=== PATIENT | male | born 1970 | race Hispanic/Latino ===

== ENCOUNTER 2017-07-29 09:35 | Inpatient (IN) | payer OTHER, SELFPAY ==
[~2017-07-29] VITALS: Ht 175.3 cm; Wt 101.3 kg
[2017-07-29] VITALS (16 sets, daily range): BP systolic 83–117; BP diastolic 44–83
[2017-07-29] MEDS ORDERED: ISOVUE-370 50ML VIAL IV ONE (09:38)
[2017-07-29] MEDS ORDERED: BIVALIRUDIN 250 MG/VIAL IV ONE (09:38)
[2017-07-29] MEDS ORDERED: NITROGLYCERIN 5 MG/ML 10 ML VIAL IV ONE (09:38)
[2017-07-29] MEDS ORDERED: ATROPINE SULFATE 0.1 MG/ML 10 ML SYG IVP ONE (09:38)
[2017-07-29] MEDS ORDERED: IOPAMIDOL-370 100 ML VIAL IV ONE ×2 (09:38→10:51)
[2017-07-29] MEDS ORDERED: DOPAMINE HCL 400 MG/D5%-WATER 0 ML IV ONE (09:38)
[2017-07-29] MEDS ORDERED: HEPARIN SODIUM 1000UNIT/ML 10ML VIAL ONE (09:38)
[2017-07-29 09:45] LABS: BASOPHILS % (AUTO) 0.6 % (0.0-5.0); EOSINOPHILS % (AUTO) 0.2 % (0.0-8.0); HEMATOCRIT 44.5 % (42-54); LYMPHOCYTES % (AUTO) 25.1 % (21.0-51.0); MEAN CORPUSCULAR HEMOGLOBIN 31.1 pg (27.0-33.0); MEAN CORPUSCULAR HGB CONC 34.2 g/dL (32.0-36.0); MEAN CORPUSCULAR VOLUME 90.8 fL (79-99); NEUTROPHILS % (AUTO) 67.1 % (40.0-77.0); NUCLEATED RED BLOOD CELLS 0.1 % (0.0-0.19); PLATELET COUNT (AUTO) 144 K/uL (130-400); RED CELL DISTRIBUTION WIDTH 13.9 % (11.0-15.5)
[2017-07-29] MEDS ORDERED: LIDOCAINE HCL 2% 20ML ONE (09:49)
[2017-07-29] MEDS ORDERED: PRASUGREL HCL 10 MG TABLET ONE (09:50)
[2017-07-29 09:54] LABS: CREATININE 1.2 mg/dL (0.5-1.5)
[2017-07-29] MEDS ORDERED: MIDAZOLAM HCL 1 MG/ML 2ML VIAL ONE (09:54)
[2017-07-29 09:56] LABS: INR 0.97 (0.85-1.15); PARTIAL THROMBOPLASTIN TIME 19.4 SEC (26.3-35.5); PROTHROMBIN TIME 10.2 SEC (9.6-11.6)
[2017-07-29 10:00] LABS: ALBUMIN 3.4 g/dL (3.5-5.0); BILIRUBIN,TOTAL 0.4 mg/dL (0.2-1.0); TOTAL PROTEIN, SERUM 7.1 g/dL (6.0-8.3)
[2017-07-29] MEDS ORDERED: MAG HYDROX/AL HYDROX/SIMETH ES 30 ML SUSP UDCUP PO PRN (10:00)
[2017-07-29] MEDS ORDERED: NITROGLYCERIN 0.4 MG SL TAB SL PRN (10:00)
[2017-07-29] MEDS ORDERED: ACETAMINOPHEN 325 MG TAB PO PRN ×2 (10:00)
[2017-07-29] MEDS ORDERED: ONDANSETRON HCL 4 MG/2 ML VIAL IV PRN (10:00)
[2017-07-29] MEDS ORDERED: MORPHINE SULFATE 2 MG/ML 1ML SYG IV PRN (10:00)
[2017-07-29] MEDS ORDERED: LACTULOSE 20 GM/30 ML UDCUP PO PRN (10:00)
[2017-07-29] MEDS ORDERED: GUAIFENESIN-DM 200/20 MG 10 ML PO PRN (10:00)
[2017-07-29] MEDS ORDERED: MORPHINE SULFATE 2 MG/ML 1ML SYG ONE ×2 (10:05→10:16)
[2017-07-29] MEDS: SODIUM CHLORIDE 0.9% 1000ML 1,000 ML IV SCH ×2 (11:17→23:47)
[2017-07-29] MEDS ORDERED: ONDANSETRON HCL 4 MG/2 ML VIAL IVP PRN (11:30)
[2017-07-29] MEDS ORDERED: ACETAMINOPHEN-CODEINE 300/30MG TAB PO PRN ×2 (11:30)
[2017-07-29] MEDS ORDERED: TEMAZEPAM 30 MG CAP PO PRN (11:30)
[2017-07-29] MEDS ORDERED: NITROGLYCERIN 50 MG/D5% WATER 1 BOT IV PRN (11:30)
[2017-07-29 11:58] LABS: CREATINE KINASE MB 4.4 ng/mL (0.5-3.6)
[2017-07-29 13:37] LABS: HEMOGLOBIN A1C 5.3 % (4.0-6.0)
[2017-07-29] MEDS ORDERED: PHARMACY COMMUNICATION MISC SCH (14:15)
[2017-07-29] MEDS: FAMOTIDINE/PF 20 MG/2 ML VIAL IV SCH ×2 (15:27→20:20)
[2017-07-29 16:10] LABS: CREATINE KINASE MB 564.7 ng/mL (0.5-3.6)
[2017-07-29 16:44] LABS: TROPONIN I 125.23 ng/mL (0.00-0.06)
[2017-07-29 19:08] LABS: AMPHET/METH SCREEN,URINE NEGATIVE (NEGATIVE); BARBITURATE SCREEN, URINE NEGATIVE (NEGATIVE); BENZODIAZEPINES SCREEN,URINE POSITIVE (NEGATIVE); CANNABINOID SCREEN,URINE NEGATIVE (NEGATIVE); COCAINE SCREEN,URINE NEGATIVE (NEGATIVE); OPIATE SCREEN,URINE POSITIVE (NEGATIVE); PHENCYCLIDINE SCREEN,URINE NEGATIVE (NEGATIVE)
[2017-07-29] MEDS: METOPROLOL TARTRATE 25 MG TAB PO SCH (20:20)
[2017-07-30] VITALS (21 sets, daily range): BP systolic 91–125; BP diastolic 58–89
[2017-07-30 04:22] LABS: HEMATOCRIT 42.3 % (42-54); MEAN CORPUSCULAR HEMOGLOBIN 30.8 pg (27.0-33.0); MEAN CORPUSCULAR VOLUME 90.7 fL (79-99); PLATELET COUNT (AUTO) 153 K/uL (130-400); RED BLOOD CELL COUNT(AUTO) 4.67 MIL/uL (4.50-6.20); RED CELL DISTRIBUTION WIDTH 14.2 % (11.0-15.5); WHITE BLOOD COUNT (AUTO) 11.5 K/uL (4.8-10.8)
[2017-07-30 04:56] LABS: CREATINE KINASE MB 218.2 ng/mL (0.5-3.6); CREATININE 1.1 mg/dL (0.5-1.5); POTASSIUM 4.2 mmol/L (3.5-5.1)
[2017-07-30 06:01] LABS: TROPONIN I 118.03 ng/mL (0.00-0.06)
[2017-07-30] MEDS: PANTOPRAZOLE SODIUM 40 MG TABLET.DR PO SCH (08:07)
[2017-07-30] MEDS: LOSARTAN 50 MG TABLET PO SCH (08:08)
[2017-07-30] MEDS: METOPROLOL TARTRATE 25 MG TAB PO SCH ×2 (08:08→20:04)
[2017-07-30] MEDS: ATORVASTATIN CALCIUM 40 MG TABLET PO SCH (08:08)
[2017-07-30] MEDS: FAMOTIDINE/PF 20 MG/2 ML VIAL IV SCH ×2 (08:08→20:03)
[2017-07-30] MEDS: PRASUGREL HCL 10 MG TABLET PO SCH (08:20)
[2017-07-30] MEDS: ASPIRIN 81MG TAB.CHEW PO SCH (09:00)
[2017-07-30] MEDS ORDERED: ASPIRIN 325MG EC TAB 325 MG TABLET.DR PO SCH (09:00)
[2017-07-30] MEDS ORDERED: ASPI-555 PO (13:19)
[2017-07-30] MEDS ORDERED: LOSA25TA21 PO (13:19)
[2017-07-31 04:00] VITALS: BP 98/60
[2017-07-31 07:00] VITALS: BP 100/67
[2017-07-31] MEDS: ATORVASTATIN CALCIUM 40 MG TABLET PO SCH (08:38)
[2017-07-31] MEDS: PANTOPRAZOLE SODIUM 40 MG TABLET.DR PO SCH (08:39)
[2017-07-31] MEDS: LOSARTAN 50 MG TABLET PO SCH (08:39)
[2017-07-31] MEDS: ASPIRIN 81MG TAB.CHEW PO SCH (08:39)
[2017-07-31] MEDS: FAMOTIDINE/PF 20 MG/2 ML VIAL IV SCH ×2 (08:39→21:50)
[2017-07-31] MEDS: METOPROLOL TARTRATE 25 MG TAB PO SCH (08:39)
[2017-07-31] MEDS: PRASUGREL HCL 10 MG TABLET PO SCH (08:39)
[2017-07-31] MEDS ORDERED: ATOR40TA69 PO (09:51)
[2017-07-31] MEDS ORDERED: PRAS10TA6 PO (09:51)
[2017-07-31] MEDS ORDERED: SPIR25TA PO (09:51)
[2017-07-31] MEDS ORDERED: CARV6.2579 PO (09:51)
[2017-07-31] MEDS: FUROSEMIDE 20 MG TABLET PO SCH (10:32)
[2017-07-31] MEDS: SPIRONOLACTONE 25 MG TAB PO SCH (10:32)
[2017-07-31 11:46] VITALS: BP 93/63
[2017-07-31 16:00] VITALS: BP 142/64
[2017-07-31 19:35] VITALS: BP 125/71
[2017-07-31] MEDS: CARVEDILOL 6.25 MG TABLET PO SCH (21:50)
[2017-07-31 23:43] VITALS: BP 101/59
[2017-08-01 03:36] VITALS: BP 107/64
[2017-08-01 03:57] LABS: CREATININE 1.5 mg/dL (0.5-1.5); POTASSIUM 3.9 mmol/L (3.5-5.1)
[2017-08-01 07:00] VITALS: BP 106/65
[2017-08-01] MEDS: SPIRONOLACTONE 25 MG TAB PO SCH (08:43)
[2017-08-01] MEDS: FUROSEMIDE 20 MG TABLET PO SCH (08:43)
[2017-08-01] MEDS: CARVEDILOL 6.25 MG TABLET PO SCH (08:43)
[2017-08-01] MEDS: ATORVASTATIN CALCIUM 40 MG TABLET PO SCH (08:43)
[2017-08-01] MEDS: PANTOPRAZOLE SODIUM 40 MG TABLET.DR PO SCH (08:43)
[2017-08-01] MEDS: ASPIRIN 81MG TAB.CHEW PO SCH (08:43)
[2017-08-01] MEDS: LOSARTAN 50 MG TABLET PO SCH (08:44)
[2017-08-01] MEDS: PRASUGREL HCL 10 MG TABLET PO SCH (08:44)
[2017-08-01] MEDS: FAMOTIDINE/PF 20 MG/2 ML VIAL IV SCH (08:44)
[2017-08-01] MEDS ORDERED: FURO20TA6 PO (10:47)
[2017-08-01 11:00] VITALS: BP 95/58
== END 2017-08-01 12:50 | disposition home or self-care (01) | DRG 246 ==
LOC: EDH 09:35 → EDHIP 09:36 → 2CH 11:48
PROVIDERS: ADMIT Family Medicine; ATTEND Family Medicine
PROC: 027035Z Dilation of Coronary Artery, One Artery with Two Drug-eluting Intraluminal Devices, Percutaneous Approach (ICD-10-PCS; principal; 2017-07-29)
PROC: 4A023N7 Measurement of Cardiac Sampling and Pressure, Left Heart, Percutaneous Approach (ICD-10-PCS; 2017-07-29)
PROC: B2111ZZ Fluoroscopy of Multiple Coronary Arteries using Low Osmolar Contrast (ICD-10-PCS; 2017-07-29)
PROC: B2161ZZ Fluoroscopy of Right and Left Heart using Low Osmolar Contrast (ICD-10-PCS; 2017-07-29)
DX: I21.09 ST elevation (STEMI) myocardial infarction involving other coronary artery of anterior wall (principal); I50.23 Acute on chronic systolic (congestive) heart failure; I11.0 Hypertensive heart disease with heart failure; E66.9 Obesity, unspecified; E78.00 Pure hypercholesterolemia, unspecified; E78.5 Hyperlipidemia, unspecified; I25.10 Atherosclerotic heart disease of native coronary artery without angina pectoris; I25.5 Ischemic cardiomyopathy; I77.1 Stricture of artery; Z79.82 Long term (current) use of aspirin; Z79.899 Other long term (current) drug therapy; Z82.49 Family history of ischemic heart disease and other diseases of the circulatory system; Z98.61 Coronary angioplasty status; Z68.33 Body mass index [BMI] 33.0-33.9, adult; Z28.21 Immunization not carried out because of patient refusal
CPT/HCPCS: 36415; 71045; 80048; 80053; 80061; 80305; 82550; 82553; 83036; 83874; 83880; 84484; 85025; 85027; 85610; 85730; 93005; 93306; 93458; 99152; 99153; 99291; C1725; C1760; C1769; C1887; C1894; C9606; C9607; J0461; J0583; J1265; J1644; J2250; J2405; J3490; J7030; Q9967